=== PATIENT | male | born 1975 | race Caucasian/White ===

== ENCOUNTER → 2016-05-25 | Outpatient (CLI) | payer OTHER | LOC: M LRY 16:12 | PROVIDERS: ATTEND Physical Medicine & Rehabilitation | DX: M47.27 Other spondylosis with radiculopathy, lumbosacral region (principal) ==

== ENCOUNTER 2018-03-05 11:41 | Day surgery (SDC) | payer OTHER ==
[~2018-03-05] VITALS: Ht 177.8 cm; Wt 101.5 kg
[~2018-03-05 11:41] MED LIST: GABA-1171 PO; GABA-843 PO; LEXA1TAB2 PO; LINZ145C PO; NS 1,000 ML IV ONE; PRAZ2CAP PO; RABE1TAB PO; TRAM50TA2 PO; ZANA2CAP PO
[2018-03-05] MEDS ORDERED: fentaNYL 100 MCG/2 ML INJECTION (J3010) As Ordered ONE (13:03)
[2018-03-05] MEDS ORDERED: LIDOCAINE 2% INJ 100 MG/5 ML SDV (FOR ANES.) As Ordered ONE ×2 (13:03→13:04)
--- NOTE | 2018-03-05 13:55 | ROOR ---
Patient Name: David Polanco Procedure Date: 03/05/2018 1:43 PM Date of : 1975 Age: 42 Room: [facility] Gender: Male Note Status: Finalized Procedure: Upper GI endoscopy Indications: Heartburn, Suspected gastroparesis, Early satiety, Eructation Providers: Remy CUETO MD Referring MD: MARCY VIDAL MD Requesting Provider: Medicines: Monitored Anesthesia Care Complications: No immediate complications. Procedure: Pre-Anesthesia Assessment: - The heart rate, respiratory rate, oxygen saturations, blood pressure, adequacy of pulmonary ventilation, and response to care were monitored throughout the procedure. The Endoscope was introduced through the mouth, and advanced to the second part of duodenum. The upper GI endoscopy was accomplished without difficulty. The patient tolerated the procedure well. Findings: The esophagus was normal. The stomach was normal. The examined duodenum was normal. Impression: - Normal esophagus. - Normal stomach. - Normal examined duodenum. - No specimens collected. Recommendation: - Continue present medications. - Gastroparesis diet: - Eat smaller, more frequent meals throughout the day. - Low fat diet. - Liquid/soft foods are tolerated better than solid foods. - Low fiber/well cooked vegetables are tolerated better than high fiber/fibrous foods/raw vegetables. - Avoid medications that inhibit gastric/intestinal motility such as narcotic medications. Remy Cueto MD Remy CUETO MD 03/05/2018 1:54:52 PM This report has been signed electronically. Number of Addenda: 0 Note Initiated On: 03/05/2018 1:43 PM Estimated Blood Loss: Estimated blood loss: none.
--- NOTE | 2018-03-05 14:15 | ROOR ---
Patient Name: David Polanco Procedure Date: 03/05/2018 1:44 PM Date of : 1975 Age: 42 Room: [facility] Gender: Male Note Status: Finalized Procedure: Colonoscopy Indications: Generalized abdominal pain, Change in bowel habits, Constipation Providers: Remy CUETO MD Referring MD: MARCY VIDAL MD Requesting Provider: Medicines: Monitored Anesthesia Care Complications: No immediate complications. Procedure: Pre-Anesthesia Assessment: - The heart rate, respiratory rate, oxygen saturations, blood pressure, adequacy of pulmonary ventilation, and response to care were monitored throughout the procedure. The Colonoscope was introduced through the anus and advanced to the cecum, identified by appendiceal orifice and ileocecal valve. The colonoscopy was performed without difficulty. The patient tolerated the procedure well. The quality of the bowel preparation was good. Findings: The perianal and digital rectal examinations were normal. A 4 mm polyp was found in the sigmoid colon. The polyp was sessile. The polyp was removed with a cold snare. Resection and retrieval were complete. The exam was otherwise without abnormality on direct and retroflexion views. The colon (entire examined portion) was redundant. Advancing the scope required using manual pressure. Small Internal Hemorrhoids. Impression: - One 4 mm polyp in the sigmoid colon, removed with a cold snare. Resected and retrieved. - Small Internal Hemorrhoids. - The examination was otherwise normal on direct and retroflexion views. Recommendation: - Await pathology results. - Telephone endoscopist for pathology results in 2 weeks. - If the pathology report reveals adenomatous tissue, then repeat the colonoscopy for surveillance in 5 years. Remy Cueto MD Remy CUETO MD 03/05/2018 2:15:08 PM This report has been signed electronically. Number of Addenda: 0 Note Initiated On: 03/05/2018 1:44 PM Estimated Blood Loss: Estimated blood loss: none.
[2018-03-05 14:35] VITALS: BP 139/72
== END 2018-03-05 14:48 | disposition home or self-care (01) ==
LOC: M OPP 11:41
PROVIDERS: ATTEND Internal Medicine Gastroenterology
DX: D12.5 Benign neoplasm of sigmoid colon (principal); K64.8 Other hemorrhoids; Q43.8 Other specified congenital malformations of intestine; R10.84 Generalized abdominal pain; K59.00 Constipation, unspecified; R12 Heartburn; R68.81 Early satiety; R14.2 Eructation
CPT/HCPCS: 43235; 45385; 88305; J3010